=== PATIENT | female | born 1965 | race Caucasian/White ===

== ENCOUNTER → 2016-10-22 | Outpatient (CLI) | payer MEDICAID ==
[2016-10-22 15:00] LABS: AMPHETAMINES/METAMPHETAMINES NEGATIVE ng/mL (<1000)
== END ==
LOC: LAB 14:08
PROVIDERS: Emergency Medicine
DX: Z79.899 Other long term (current) drug therapy (principal)

== ENCOUNTER → 2016-11-19 | Outpatient (CLI) | payer MEDICAID ==
[2016-11-19 18:19] LABS: HEMOGLOBIN 14.3 g/dL (12.2-16.2); LYMPH # 2.8 K/mm3 (0.7-4.5); LYMPH % 33.1 % (10-50.0)
[2016-11-19 18:53] LABS: AMPHETAMINES/METAMPHETAMINES POSITIVE ng/mL (<1000)
[2016-11-19 19:56] LABS: BUN 9 mg/dL (7-18)
[2016-11-19 20:03] LABS: GFR (ESTIMATED) 88 ML/MIN (59-)
[2016-11-21 08:43] LABS: HBsAg Screen Negative (Negative); Hep A Ab, IgM Negative (Negative); Hep B Core Ab, IgM Negative (Negative); Hep C Virus Ab <0.1 (0.0-0.9)
== END ==
LOC: LAB 17:23
PROVIDERS: Emergency Medicine
DX: Z79.899 Other long term (current) drug therapy (principal); Z00.00 Encounter for general adult medical examination without abnormal findings